=== PATIENT | female | born 1930 | race Caucasian/White ===

== ENCOUNTER → 2017-04-30 | Outpatient (CLI) | payer OTHER ==
--- NOTE | 2017-04-30 14:57 | RADRPT ---
EXAM DATE/TIME: 04/30/2017 00:00 [place] COMPARISON: No previous studies available for comparison. Prior CT dated 01/25/2017 and ultrasound of the pelvis d ated 12/19/2016 reviewed. INDICATIONS : Request for right ovarian cyst aspiration. FINDINGS: The prior studies were reviewed. There is a right adnexal/ovarian cystic lesion measuring approximate ly 3.0 x 2.0 cm. This cystic lesion was present on the 05/26/2015 examination when it measured 2.0 x 1.5 cm. No internal complex features are appreciated on prior ultrasound. The location of the deep ri ght pelvis does not allow for safe percutaneous access. The internal and external iliac vessels are a t the posterior and anterior aspect of the lesion, respectively. There is also sigmoid colon and smal l bowel also surrounding the lesion. CONCLUSION: The 3 cm right ovarian/adnexal cystic lesion is not amenable to safe percutaneous aspiration. The les ion has slightly enlarged since May 2015 but demonstrates no septations or solid components. Adonay Limon MD on April 30, 2017 at 14:50 Board Certified Radiologist. This report was verified electronically.
== END ==
LOC: HRAD 14:21
PROVIDERS: ATTEND Obstetrics & Gynecology Gynecologic Oncology
DX: N83.201 Unspecified ovarian cyst, right side (principal)